=== PATIENT | female | born 1995 | race American Indian/Alaskan Native ===

== ENCOUNTER 2021-11-28 20:32 | Emergency (ER) | payer OTHER ==
[2021-11-28 21:53] VITALS: BP 140/72
--- NOTE | 2021-11-28 22:29 | XRay Report ---
CHEST 2 VIEWS INDICATION / CLINICAL INFORMATION: chestpain. COMPARISON: None available. FINDINGS: SUPPORT DEVICES: None. HEART / MEDIASTINUM: No significant abnormality. LUNGS / PLEURA: No significant pulmonary or pleural abnormality. No pneumothorax. ADDITIONAL FINDINGS: No significant additional findings. IMPRESSION: 1. No acute findings. Signer Name: Tracie Moore MD Signed: 11/28/2021 10:25 PM Workstation Name: [id number]
[2021-11-29] MEDS ORDERED: KETOROLAC 60 MG/2 ML INJ IM STA (02:19)
--- NOTE | 2021-11-29 03:06 | Emergency Department Report ---
ED General Adult HPI - General Chief complaint: Chest Pain Stated complaint: ANXIETY/CHEST PAIN Time Seen by Provider: 11/29/21 01:43 Source: patient Mode of arrival: Stretcher Limitations: No Limitations - History of Present Illness Initial comments: 26-year-old female asthma department complaining of 3-day history of chest pain which appears to worsen with movement and deep breaths and palpation. She also reports getting some shortness of breath on on exertion and lower extremity swelling, no fever, chills, sweats. No nausea or vomiting. Location: chest (Discussed for process region worse with palpation and range of motion and deep with) Radiation: back (Sometimes with deep breaths to the right scapula) Severity scale (0 -10): 10 Consistency: constant Improves with: none Worsens with: none Associated Symptoms: chest pain. denies: malaise, nausea/vomiting, shortness of breath, syncope Treatments Prior to Arrival: none - Related Data Previous Rx's Medication Instructions Recorded Last Taken Type Ketorolac [Toradol] 10 mg PO Q6H PRN #10 11/29/21 Unknown Rx Allergies Allergy/AdvReac Type Severity Reaction Status Date / Time No Known Allergies Allergy Unverified 11/28/21 21:53 ED Review of Systems ROS: Stated complaint: ANXIETY/CHEST PAIN Other details as noted in HPI Comment: All other systems reviewed and negative ED Past Medical Hx - Past Medical History Previous Medical History?: No - Surgical History Past Surgical History?: No - Social History Smoking Status: Never Smoker - Medications Home Medications: Home Medications Medication Instructions Recorded Confirmed Last Taken Type Ketorolac [Toradol] 10 mg PO Q6H PRN #10 11/29/21 Unknown Rx ED Physical Exam - General Limitations: No Limitations General appearance: alert, in no apparent distress - Head Head exam: Present: atraumatic, normocephalic - Eye Eye exam: Present: normal appearance, PERRL, EOMI Pupils: Present: normal accommodation - ENT ENT exam: Present: normal exam, normal orophraynx, mucous membranes moist - Neck Neck exam: Present: normal inspection - Respiratory Respiratory exam: Present: normal lung sounds bilaterally, chest wall tenderness. Absent: respiratory distress - Cardiovascular Cardiovascular Exam: Present: regular rate, normal rhythm, tachycardia. Absent: systolic murmur, diastolic murmur, rubs, gallop - GI/Abdominal GI/Abdominal exam: Present: soft, normal bowel sounds - Extremities Exam Extremities exam: Present: normal inspection, full ROM - Back Exam Back exam: Present: normal inspection. Absent: CVA tenderness (R), CVA tenderness (L) - Neurological Exam Neurological exam: Present: alert, oriented X3, CN II-XII intact, normal gait - Psychiatric Psychiatric exam: Present: normal affect, normal mood - Skin Skin exam: Present: warm, dry, intact, normal color. Absent: rash ED Course Vital Signs 11/28/21 11/29/21 20:32 02:26 Temperature 97.4 F L Pulse Rate 100 H Respiratory 18 16 Rate Blood Pressure 140/72 O2 Sat by Pulse 99 Oximetry - Reevaluation(s) Reevaluation #1: 11/29/21 02:58 We ambulated the patient with pulse ox symmetry she maintained saturation of about 97 to 98% however her heart rate did significantly increase from the the upper 90s to 130 ED Medical Decision Making - Lab Data Result diagrams: 11/29/21 04:18 - Radiology Data Radiology results: [place] [address] Cat Scan Report Signed Patient: GERMÁN PARRA MR#: [id number] : 1995 Acct:[id number] Age/Sex: 26 / F ADM Date: 11/28/21 Loc: ED Attending Dr: Ordering Physician: DANIELA COSBY Date of Service: 11/29/21 Procedure(s): CT angio chest Accession Number(s): [id number] cc: DANIELA COSBY CT angio chest INDICATION / CLINICAL INFORMATION: chest pain and tachycardia. TECHNIQUE: Axial CT images were obtained through the chest after injection of 100 cc Omnipaque 350 IV contrast. 3 plane MIP and/or 3D reconstructions were produced. All CT scans at this location are performed using CT dose reduction for ALARA by means of automated exposure control. COMPARISON: Chest radiograph from yesterday FINDINGS: PULMONARY ARTERIES: No central or segmental pulmonary embolus. THORACIC AORTA: No significant abnormality. HEART: No significant abnormality. CORONARY ARTERY CALCIFICATION: No significant calcification. LYMPHADENOPATHY: Nonspecific mild bilateral axillary lymphadenopathy, measuring up to 1.5 cm on the right and 1.2 cm on the left. No supraclavicular, mediastinal, or axillary lymphadenopathy. LUNGS/PLEURA: No acute airspace disease. No pleural effusion or pneumothorax. OTHER FINDINGS: None. UPPER ABDOMEN: No acute findings. SKELETAL SYSTEM: No acute osseous findings. IMPRESSION: 1. No evidence of pulmonary embolism. 2. Mild bilateral axillary lymphadenopathy. Findings are nonspecific. Differential includes autoimmune disorders and granulomatous disease. Continued follow-up is r ecommended, as malignant etiologies cannot be entirely excluded. 3. Otherwise, no acute findings in the chest. No acute interstitial or airspace disease. Signer Name: Kobe Chino MD Signed: 11/29/2021 5:43 AM Workstation Name: [id number] Transcribed By: JS Dictated By: KOBE CHINO MD Electronically Authenticated By: KOBE CHINO MD Signed Date/Time: 11/29/21542 DD/ 6 TD/TT: - Medical Decision Making This patient presents with chest pain that is very unlikely angina or acute coronary syndrome. The emergency department evaluation has not identified any cause for suspicion that this chest pain has a cardiac etiology. Based on their history, EKG (which showed no evidence of ischemia or infarction) and imaging, in addition to the patient's physical exam, I see no evidence at this time for a malignant etiology for the patient's chest pain. There is no acute evidence for pulmonary embolus, acute myocardial infarction, pneumothorax, Boerhaeve syndrome, cardiac tamponade, thoracic artery dissection, or any other emergent cardiac, pulmonary or aortic pathology. Given the low pre-test probability for cardiac etiology of chest pain and the absence of any sign of ischemia or infarction, discharge for outpatient follow-up and further evaluation is reasonable. I have explained to the patient that even though a cardiac problem is very unlikely, follow-up and further testing is required to reduce further the already small uncertainty that exists. Other life-threatening diagnoses have been considered. The patient understands the need to return immediately if their symptoms worsen or they develop any new symptoms, and not to engage in any significant exertional activity until follow-up is obtained. Critical care attestation.: If time is entered above; I have spent that time in minutes in the direct care of this critically ill patient, excluding procedure time. ED Disposition Clinical Impression: Chest pain Disposition: HOME / SELF CARE / HOMELESS Is pt being admited?: No Does the pt Need Aspirin: No Condition: Stable Instructions: Nonspecific Chest Pain, Adult, Costochondritis Additional Instructions: CT of the chest was obtained did not pulmonary embolisms or pneumonias no effusions. Prescriptions: Ketorolac [Toradol] 10 mg PO Q6H PRN #10 PRN Reason: Pain Referrals: [facility] [Other] - 3-5 Days Forms: Work/School Release Form(ED)
[2021-11-29 04:56] LABS: Blood Urea Nitrogen 9 mg/dL (7-17); Calcium 9.4 mg/dL (8.4-10.2); Hemolysis Index 6
[2021-11-29 05:12] LABS: BUN/Creatinine Ratio 13
--- NOTE | 2021-11-29 05:48 | Cat Scan Report ---
CT angio chest INDICATION / CLINICAL INFORMATION: chest pain and tachycardia. TECHNIQUE: Axial CT images were obtained through the chest after injection of 100 cc Omnipaque 350 IV contrast. 3 plane MIP and/or 3D reconstructions were produced. All CT scans at this location are per formed using CT dose reduction for ALARA by means of automated exposure control. COMPARISON: Chest radiograph from yesterday FINDINGS: PULMONARY ARTERIES: No central or segmental pulmonary embolus. THORACIC AORTA: No significant abnormality. HEART: No significant abnormality. CORONARY ARTERY CALCIFICATION: No significant calcification. LYMPHADENOPATHY: Nonspecific mild bilateral axillary lymphadenopathy, measuring up to 1.5 cm on the r ight and 1.2 cm on the left. No supraclavicular, mediastinal, or axillary lymphadenopathy. LUNGS/PLEURA: No acute airspace disease. No pleural effusion or pneumothorax. OTHER FINDINGS: None. UPPER ABDOMEN: No acute findings. SKELETAL SYSTEM: No acute osseous findings. IMPRESSION: 1. No evidence of pulmonary embolism. 2. Mild bilateral axillary lymphadenopathy. Findings are nonspecific. Differential includes autoimmun e disorders and granulomatous disease. Continued follow-up is recommended, as malignant etiologies ca nnot be entirely excluded. 3. Otherwise, no acute findings in the chest. No acute interstitial or airspace disease. Signer Name: Lalit Cihno MD Signed: 11/29/2021 5:43 AM Workstation Name: [id number]
--- NOTE | 2021-11-29 13:33 | Electrocardiograph Report ---
[facility] Test Date: 2021-11-28 Test Time: 21:30:29 Pat Name: GERMÁN PARRA Department: Room: Gender: F [employer] Supervisor: JULIETTE : 1995 Requested By: GWENDOLYN MOROCHO Order Number: [id number] Reading MD: Sunil Donovan Measurements Intervals [place] Rate: 88 P: 60 NC: 151 QRS: 24 QRSD: 65 T: 15 QT: 353 QTc: 428 Interpretive Statements Sinus rhythm Left atrial enlargement No previous ECG available for comparison Electronically Signed On 11-29-2021 13:32:55 EDT by Sunil Donovan
== END 2021-11-29 06:57 | disposition home or self-care (01) ==
LOC: ED 20:32
DX: R07.9 Chest pain, unspecified (principal)
CPT/HCPCS: 36415; 71046; 71275; 80048; 84703; 93005; 96372; 99284; J1885; Q9967